=== PATIENT | female | born 1980 | race Caucasian/White ===

== ENCOUNTER 2017-11-04 07:31 | Day surgery (SDC) | payer OTHER ==
[2017-11-03 11:50] VITALS: BMI 27.9
[2017-11-04 08:16] VITALS: TEMP 98.2
[2017-11-04] MEDS ORDERED: MIDAZOLAM HCL 2 MG/2 ML SINGLE DOSE VIAL ONE (09:27)
[2017-11-04] MEDS ORDERED: PROPOFOL 20 ML ONE ×2 (09:27)
[2017-11-04] MEDS ORDERED: DEXAMETHASONE SOD PHOSPHATE 4 MG/1 ML VIAL ONE (09:39)
[2017-11-04] MEDS ORDERED: KETOROLAC TROMETHAMINE 30 MG/1 ML VIAL ONE (09:39)
[2017-11-04] MEDS ORDERED: LIDOCAINE HCL 1%, 10 MG/ML (50 mL VIAL) IJ ONE (09:40)
--- NOTE | 2017-11-04 10:35 | OP ---
DATE OF OPERATION: 11/04/2017 PREOPERATIVE DIAGNOSIS: Right breast mass. POSTOPERATIVE DIAGNOSIS: Right breast mass. PROCEDURE: Excision of right breast mass. SURGEON: Diana Dyson MD ANESTHESIA: Local, IV sedation. ESTIMATED BLOOD LOSS: Minimal. COMPLICATIONS: None. This is a sterile procedure. INDICATIONS FOR PROCEDURE: Patient had a palpable mass that I followed and seemed to be increasing slightly on ultrasound and as it was tender we decided to excise this. The procedure was discussed with all the questions answered. This was in the right breast 4 o'clock location 2 cm from the nipple. PROCEDURE IN DETAIL: Patient was brought to [facility] in [place]. Was taken into the operating room and after IV sedation the right breast was prepped and draped in the usual sterile fashion. The area in the lower inner right breast was anesthetized with 1% lidocaine without epinephrine. A periareolar incision was made in the lower outer right breast and the palpable mass was excised en bloc and sent to Pathology for permanent section. Hemostasis assured with electrocautery. The parenchyma approximated with interrupted 2-0 Vicryl. Skin approximated with interrupted 3-0 Vicryl and running 4-0 Prolene. A sterile dressing with Steri-Strips, Tegaderm was applied. She tolerated the procedure well, was taken to recovery in good condition. DIANA DYSON M.D. JULIO [id number]
[2017-11-04] MEDS ORDERED: ACETAMINOPHEN 325 MG TABLET (FP) ONE (11:57)
[2017-11-04 12:21] VITALS: BP 100/64; PULSE 55
--- NOTE | 2017-11-07 12:26 | PATH ---
Surgical Pathology Report Patient Name: KATE LEWIS [facility]. Rec. #: [id number] /Age/Gender: 1980 (Age: 37) / F Account: [id number] Location: [facility] SUR[facility] Taken: 11/04/2017 Received: 11/04/2017 Reported: 11/07/2017 Physicians: Diana Chappell M.D. Specimen(s) Received RIGHT BEAST MASS Clinical History Right breast mass Final Diagnosis RIGHT BREAST MASS, WIDE EXCISION: FIBROADENOMA. MARGINS OF EXCISION FREE OF LESION. REMAINING BREAST TISSUE WITH FIBROCYSTIC CHANGES INCLUDING STROMAL FIBROSIS AND DUCTAL DILATATION. Electronically Signed Lex Mcdonnell M.D. Gross Description Received in formalin labelled "right breast mass" is a 3 x 2 x 1.7 cm portion of yellow fatty tissue. No localizing wire orienting sutures are present. The margins are inked. Cut surface of the specimen reveals a well demarcated 1.4 cm greatest dimension chong nodule. Sectioned and totally submitted in 7 cassettes. Time to formalin fixation: Not indicated Total formalin fixation time: Approximately 6-24 hours. [facility]/11/04/2017 [facility]/11/04/2017
== END 2017-11-04 12:10 | disposition home or self-care (01) ==
LOC: JASU-SURG 07:31
PROVIDERS: ATTEND Surgery
PROC: 0HBT0ZX Excision of Right Breast, Open Approach, Diagnostic (ICD-10-PCS; principal; 2017-11-04 09:00)
DX: D24.1 Benign neoplasm of right breast (principal); N60.11 Diffuse cystic mastopathy of right breast
CPT/HCPCS: 84703; 88307-TC